=== PATIENT | female | born 1985 | race Caucasian/White ===

== ENCOUNTER → 2017-07-21 11:31 | Outpatient (REF) | payer OTHER, SELFPAY ==
[2017-07-21 14:21] LABS: Amphetamine/Metha Screen,Urine Negative ng/mL (<1000); Barbiturates Screen,Urine Negative ng/mL (<200); Benzodiazepines Screen,Urine Positive ng/mL (200); Cannabinoid Screen,Urine Positive ng/mL (<50); Cocaine Screen,Urine Negative ng/g (<300); Methadone Screen,Urine Negative ng/mL (<300); Opiate Screen,Urine Negative ng/mL (<300); Phencyclidine Screen,Urine Negative ng/mL (<25)
[2017-07-21 18:12] LABS: C-Reactive Protein < 0.2 mg/L (0.0-0.9)
[2017-07-21 18:53] LABS: Erythrocyte Sedimentation Rate 8 mm/hr (0-20)
== END ==
LOC: LAB 11:31
PROVIDERS: Visit Provider Emergency Medicine
DX: Z79.899 Other long term (current) drug therapy (principal); R53.83 Other fatigue
CPT/HCPCS: 80305; 85651; 86140

== ENCOUNTER → 2017-08-09 13:53 | Outpatient (REF) | payer OTHER, SELFPAY ==
[2017-08-09 14:30] LABS: Amphetamine/Metha Screen,Urine Negative ng/mL (<1000); Barbiturates Screen,Urine Positive ng/mL (<200); Benzodiazepines Screen,Urine Positive ng/mL (200); Cannabinoid Screen,Urine Negative ng/mL (<50); Cocaine Screen,Urine Negative ng/g (<300); Methadone Screen,Urine Negative ng/mL (<300); Opiate Screen,Urine Negative ng/mL (<300); Phencyclidine Screen,Urine Negative ng/mL (<25)
== END ==
LOC: LAB 13:53
PROVIDERS: Visit Provider Emergency Medicine
DX: Z79.899 Other long term (current) drug therapy (principal)
CPT/HCPCS: 80305

== ENCOUNTER → 2017-08-17 09:25 | Outpatient (CLI) | payer OTHER, SELFPAY | PROVIDERS: PCP Emergency Medicine; Visit Provider Emergency Medicine | DX: M54.40 Lumbago with sciatica, unspecified side (principal); G89.29 Other chronic pain ==

== ENCOUNTER → 2017-09-05 14:03 | Outpatient (REF) | payer OTHER, SELFPAY ==
[2017-09-05 22:08] LABS: Amphetamine/Metha Screen,Urine Negative ng/mL (<1000); Barbiturates Screen,Urine Positive ng/mL (<200); Benzodiazepines Screen,Urine Positive ng/mL (200); Cannabinoid Screen,Urine Negative ng/mL (<50); Cocaine Screen,Urine Negative ng/g (<300); Methadone Screen,Urine Negative ng/mL (<300); Opiate Screen,Urine Negative ng/mL (<300); Phencyclidine Screen,Urine Negative ng/mL (<25)
== END ==
LOC: LAB 14:03
PROVIDERS: Visit Provider Emergency Medicine
DX: M54.9 Dorsalgia, unspecified (principal); Z79.899 Other long term (current) drug therapy
CPT/HCPCS: 80305

== ENCOUNTER → 2017-09-30 12:42 | Outpatient (CLI) | payer OTHER, SELFPAY ==
--- NOTE | 2017-09-30 12:56 | XR_ITS ---
XR chest 2V INDICATION: Coarseness COMPARISON: PA and lateral chest 09/09/2015 FINDINGS: The cardiovascular structures are unremarkable. No mediastinal shift or hilar mass is evident. The lungs are well expanded and clear bilaterally. The costophrenic sulci are sharp. No significant bony anomalies are apparent. IMPRESSION: Negative chest.
[2017-09-30 13:33] LABS: Eosinophils # 0.1 K/mm3 (0.0-0.4); Eosinophils % 3.2 % (0.1-12.0); Hematocrit 44.3 % (37.0-47.0); Hemoglobin 14.3 g/dL (12.2-16.2); Lymphocytes # 1.3 K/mm3 (0.7-4.5); Lymphocytes % 33.2 K/mm3 (10-50); Mean Corpuscular HGB Conc 32.2 g/dL (31.8-35.4); Mean Corpuscular Hemoglobin 30.7 pg (27.0-31.2); Mean Corpuscular Volume 95.4 fl (81-99); Mean Platelet Volume 8.1 fl (7.4-10.4); Monocytes # 0.3 K/mm3 (0.1-1.0); Monocytes % 6.5 % (1.7-9.3); Neutrophils # 2.1 K/mm3 (1.8-7.8); Platelet Count 201 K/mm3 (142-424); Red Blood Count 4.65 M/mm3 (4.20-5.40); Red Cell Distribution Width 12.4 % (11.5-17.5); White Blood Count 3.8 K/mm3 (4.8-10.8)
[2017-09-30 13:39] LABS: Alanine Aminotransferase 190 U/L (12-78); Albumin Level 4.2 gm/dL (3.4-5.0); Albumin/Globulin Ratio 1.5 (1.1-1.8); Alkaline Phosphatase 68 U/L (46-116); Anion Gap 11.7 mEq/L (5-15); Aspartate Amino Transferase 38 U/L (15-37); Bilirubin,Total 0.5 mg/dL (0.2-1.0); Blood Urea Nitrogen 20 mg/dL (7-18); Calcium 9.1 mg/dL (8.5-10.1); Carbon Dioxide 28 mmol/L (21.0-32.0); Chloride 106 mmol/L (98-107); Estimated Glomerular Filt Rate 83 ml/min (>60); GFR (African American) 101 ML/MIN (>60); Globulin 2.8 gm/dl (1.3-3.2); Glucose 110 mg/dL (74-106); Potassium 3.7 mmoL/L (3.5-5.1); Sodium 142 mmol/L (136-145)
== END ==
PROVIDERS: PCP Emergency Medicine; Visit Provider Otolaryngology
DX: J38.1 Polyp of vocal cord and larynx (principal)
CPT/HCPCS: 36415; 71046; 80053; 85025

== ENCOUNTER → 2017-10-04 08:14 | Outpatient (REF) | payer OTHER, SELFPAY ==
[2017-10-04 13:39] LABS: Amphetamine/Metha Screen,Urine Negative ng/mL (<1000); Barbiturates Screen,Urine Positive ng/mL (<200); Benzodiazepines Screen,Urine Positive ng/mL (200); Cannabinoid Screen,Urine Negative ng/mL (<50); Cocaine Screen,Urine Negative ng/g (<300); Methadone Screen,Urine Negative ng/mL (<300); Opiate Screen,Urine Negative ng/mL (<300); Phencyclidine Screen,Urine Negative ng/mL (<25)
== END ==
LOC: LAB 08:14
PROVIDERS: Visit Provider Emergency Medicine
DX: Z79.899 Other long term (current) drug therapy (principal)
CPT/HCPCS: 80305

== ENCOUNTER → 2017-10-31 10:11 | Outpatient (REF) | payer OTHER, SELFPAY ==
[2017-10-31 14:38] LABS: Amphetamine/Metha Screen,Urine Negative ng/mL (<1000); Barbiturates Screen,Urine Negative ng/mL (<200); Benzodiazepines Screen,Urine Positive ng/mL (200); Cannabinoid Screen,Urine Negative ng/mL (<50); Cocaine Screen,Urine Negative ng/g (<300); Methadone Screen,Urine Negative ng/mL (<300); Opiate Screen,Urine Positive ng/mL (<300); Phencyclidine Screen,Urine Negative ng/mL (<25)
== END ==
LOC: LAB 10:11
PROVIDERS: Visit Provider Emergency Medicine
DX: Z79.899 Other long term (current) drug therapy (principal)
CPT/HCPCS: 80305

== ENCOUNTER → 2017-11-29 11:23 | Outpatient (REF) | payer OTHER, SELFPAY ==
[2017-11-29 14:03] LABS: Amphetamine/Metha Screen,Urine Negative ng/mL (<1000); Barbiturates Screen,Urine Negative ng/mL (<200); Benzodiazepines Screen,Urine Positive ng/mL (200); Cannabinoid Screen,Urine Negative ng/mL (<50); Cocaine Screen,Urine Negative ng/g (<300); Methadone Screen,Urine Negative ng/mL (<300); Opiate Screen,Urine Negative ng/mL (<300); Phencyclidine Screen,Urine Negative ng/mL (<25)
== END ==
LOC: LAB 11:23
PROVIDERS: Visit Provider Emergency Medicine
DX: Z79.899 Other long term (current) drug therapy (principal)
CPT/HCPCS: 80305

== ENCOUNTER → 2017-12-29 09:47 | Outpatient (CLI) | payer OTHER, SELFPAY ==
[2017-12-29 21:13] LABS: Amphetamine/Metha Screen,Urine Negative ng/mL (<1000); Barbiturates Screen,Urine Positive ng/mL (<200); Benzodiazepines Screen,Urine Negative ng/mL (<200); Cannabinoid Screen,Urine Negative ng/mL (<50); Cocaine Screen,Urine Negative ng/mL (<300); Methadone Screen,Urine Negative ng/mL (<300); Opiate Screen,Urine Negative ng/mL (<300); Phencyclidine Screen,Urine Negative ng/mL (<25)
== END ==
PROVIDERS: Visit Provider Emergency Medicine
DX: R30.0 Dysuria (principal); M54.5 Low back pain; Z79.899 Other long term (current) drug therapy
CPT/HCPCS: 80305; 87086

== ENCOUNTER → 2018-01-29 09:16 | Outpatient (REF) | payer OTHER, SELFPAY ==
[2018-01-29 14:13] LABS: Amphetamine/Metha Screen,Urine Negative ng/mL (<1000); Barbiturates Screen,Urine Positive ng/mL (<200); Benzodiazepines Screen,Urine Positive ng/mL (<200); Cannabinoid Screen,Urine Negative ng/mL (<50); Cocaine Screen,Urine Negative ng/mL (<300); Methadone Screen,Urine Negative ng/mL (<300); Opiate Screen,Urine Negative ng/mL (<300); Phencyclidine Screen,Urine Negative ng/mL (<25)
[2018-02-08 21:08] LABS: Alprazolam Negative (Cutoff=100); Benzodiazepines Positive ng/mL (Cutoff=100); Clonazepam Negative (Cutoff=100); Flurazepam Negative (Cutoff=100); Lorazepam Negative (Cutoff=100); Midazolam Negative (Cutoff=100); Temazepam Positive (.); Triazolam Negative (Cutoff=100)
[2018-02-09 09:08] LABS: Opiates Negative ng/mL (Cutoff=100)
== END ==
LOC: LAB 09:16
PROVIDERS: Visit Provider Emergency Medicine
DX: Z79.899 Other long term (current) drug therapy (principal)
CPT/HCPCS: 80305; 80346; 80361; G0480

== ENCOUNTER → 2018-01-30 10:13 | Outpatient (CLI) | payer OTHER, SELFPAY | PROVIDERS: Visit Provider Emergency Medicine | DX: Z79.899 Other long term (current) drug therapy (principal) ==

== ENCOUNTER → 2018-02-28 15:20 | Outpatient (CLI) | payer OTHER, SELFPAY ==
[2018-02-28 18:36] LABS: Amphetamine/Metha Screen,Urine Negative ng/mL (<1000); Barbiturates Screen,Urine Negative ng/mL (<200); Benzodiazepines Screen,Urine Negative ng/mL (<200); Cannabinoid Screen,Urine Negative ng/mL (<50); Cocaine Screen,Urine Negative ng/mL (<300); Methadone Screen,Urine Negative ng/mL (<300); Opiate Screen,Urine Negative ng/mL (<300); Phencyclidine Screen,Urine Negative ng/mL (<25)
== END ==
PROVIDERS: Visit Provider Emergency Medicine
DX: Z79.899 Other long term (current) drug therapy (principal)
CPT/HCPCS: 80305

== ENCOUNTER → 2018-03-28 09:37 | Outpatient (REF) | payer OTHER, SELFPAY ==
[2018-03-28 13:49] LABS: Amphetamine/Metha Screen,Urine Negative ng/mL (<1000); Barbiturates Screen,Urine Negative ng/mL (<200); Benzodiazepines Screen,Urine Positive ng/mL (<200); Cannabinoid Screen,Urine Negative ng/mL (<50); Cocaine Screen,Urine Negative ng/mL (<300); Methadone Screen,Urine Negative ng/mL (<300); Opiate Screen,Urine Negative ng/mL (<300); Phencyclidine Screen,Urine Negative ng/mL (<25)
[2018-04-04 16:24] LABS: Alprazolam Negative (Cutoff=100); Benzodiazepines Positive ng/mL (Cutoff=100); Clonazepam Negative (Cutoff=100); Flurazepam Negative (Cutoff=100); Lorazepam Negative (Cutoff=100); Midazolam Negative (Cutoff=100); Temazepam Positive (.); Triazolam Negative (Cutoff=100)
[2018-04-05 07:09] LABS: Opiates Negative ng/mL (Cutoff=100)
== END ==
LOC: LAB 09:37
PROVIDERS: Visit Provider Emergency Medicine
DX: Z79.899 Other long term (current) drug therapy (principal)
CPT/HCPCS: 80305; 80346; 80361; G0480

== ENCOUNTER → 2018-03-30 08:31 | Outpatient (CLI) | payer OTHER, SELFPAY | PROVIDERS: Visit Provider Emergency Medicine | DX: Z79.899 Other long term (current) drug therapy (principal) ==

== ENCOUNTER → 2018-04-13 16:39 | Outpatient (CLI) | payer OTHER, SELFPAY ==
--- NOTE | 2018-04-13 16:40 | MR_ITS ---
MR lumbar spine wo con, MR 3-d myelogram/MRCP HISTORY: Low back pain X years. RT leg pain, tingling, and burning. PT also states mid back burning on RT side. ITS.REASON: back pain ORDERING PHYSICIAN: Carlos Herr MD PATIENT AGE: 32 years Comparison: None TECHNIQUE: Standard multiplanar multiecho sequences are performed without contrast. 3-D MIP and myelographic images are also rendered and reviewed FINDINGS: There is lumbar rotoscoliosis convex left measuring 20 degrees. L1-L2: Disc desiccation along the right aspect of the disc. L2-L3: Minimal bulging disc. L3-L4: Bulging disc slightly eccentric towards the left with small central annular fissure. There is moderate facet and ligamentum flavum hypertrophy with moderate bilateral lateral recess and foraminal narrowing. L4-5: Mild concentric bulging disc with minimal broad-based central disc protrusion. There is facet and ligamentum flavum hypertrophy at this level with moderate bilateral lateral recess narrowing. There is some mild impingement upon the L5 nerve roots bilaterally from the central protruding/bulging disc and facet and ligamentum flavum hypertrophy. There is borderline canal stenosis at L4-L5. L5-S1: Degenerative disc disease with bulging disc along with mild facet and ligamentous hypertrophy. No extruded herniated disc is evident. IMPRESSION: 1. Lumbar rotoscoliosis convex left with mild multilevel lumbar spondylosis. 2. L3-L4: Bulging disc slightly eccentric towards the left with small central annular fissure. There is moderate facet and ligamentum flavum hypertrophy with moderate bilateral lateral recess and foraminal narrowing. 3. L4-5: Mild concentric bulging disc with minimal broad-based central disc protrusion. There is facet and ligamentum flavum hypertrophy at this level with moderate bilateral lateral recess narrowing. There is some mild impingement upon the L5 nerve roots bilaterally from the central protruding/bulging disc and facet and ligamentum flavum hypertrophy. There is borderline canal stenosis at L4-L5 4. No extruded herniated disc evident
== END ==
PROVIDERS: PCP Emergency Medicine; Visit Provider Emergency Medicine
DX: M54.9 Dorsalgia, unspecified (principal)
CPT/HCPCS: 72148; 76376

== ENCOUNTER → 2018-04-26 16:28 | Outpatient (CLI) | payer OTHER, SELFPAY ==
[2018-04-27 16:04] LABS: Amphetamine/Metha Screen,Urine Negative ng/mL (<1000); Barbiturates Screen,Urine Negative ng/mL (<200); Benzodiazepines Screen,Urine Negative ng/mL (<200); Cannabinoid Screen,Urine Negative ng/mL (<50); Cocaine Screen,Urine Negative ng/mL (<300); Methadone Screen,Urine Negative ng/mL (<300); Opiate Screen,Urine Negative ng/mL (<300); Phencyclidine Screen,Urine Negative ng/mL (<25)
== END ==
PROVIDERS: PCP Emergency Medicine; Visit Provider Emergency Medicine
DX: Z79.899 Other long term (current) drug therapy (principal)
CPT/HCPCS: 80305

== ENCOUNTER → 2018-05-28 18:28 | Outpatient (CLI) | payer OTHER, SELFPAY ==
[2018-05-28 19:13] LABS: Amphetamine/Metha Screen,Urine Negative ng/mL (<1000); Barbiturates Screen,Urine Negative ng/mL (<200); Benzodiazepines Screen,Urine Negative ng/mL (<200); Cannabinoid Screen,Urine Negative ng/mL (<50); Cocaine Screen,Urine Negative ng/mL (<300); Methadone Screen,Urine Negative ng/mL (<300); Opiate Screen,Urine Negative ng/mL (<300); Phencyclidine Screen,Urine Negative ng/mL (<25)
== END ==
PROVIDERS: Visit Provider Emergency Medicine
DX: Z79.899 Other long term (current) drug therapy (principal)
CPT/HCPCS: 80305

== ENCOUNTER → 2018-07-02 18:14 | Outpatient (CLI) | payer OTHER, SELFPAY ==
[2018-07-02 19:57] LABS: Amphetamine/Metha Screen,Urine Negative ng/mL (<1000); Barbiturates Screen,Urine Negative ng/mL (<200); Benzodiazepines Screen,Urine Negative ng/mL (<200); Cannabinoid Screen,Urine Negative ng/mL (<50); Cocaine Screen,Urine Negative ng/mL (<300); Methadone Screen,Urine Negative ng/mL (<300); Opiate Screen,Urine Negative ng/mL (<300); Phencyclidine Screen,Urine Negative ng/mL (<25)
[2018-07-07 16:12] LABS: Alprazolam Negative (Cutoff=100); Benzodiazepines Positive ng/mL (Cutoff=100); Clonazepam Positive (.); Flurazepam Negative (Cutoff=100); Lorazepam Negative (Cutoff=100); Midazolam Negative (Cutoff=100); Temazepam Negative (Cutoff=100); Triazolam Negative (Cutoff=100)
[2018-07-07 22:47] LABS: Clonazepam Confirm 243 ng/mL (Cutoff=100); Opiates Negative ng/mL (Cutoff=100)
[2018-07-08 15:08] LABS: Amphetamines Negative (Cutoff=500)
== END ==
PROVIDERS: Visit Provider Emergency Medicine
DX: Z79.899 Other long term (current) drug therapy (principal)
CPT/HCPCS: 80305; 80324; 80346; 80361; G0480

== ENCOUNTER → 2021-08-16 16:00 | Outpatient (CLI) | payer BC, OTHER, SELFPAY ==
[2021-08-16 14:32] LABS: Alanine Aminotransferase 181 U/L (12-78); Albumin Level 4.4 g/dl (3.5-5.0); Alkaline Phosphatase 95 U/L (38-126); Anion Gap 10.3 mEq/L (5-15); Aspartate Amino Transferase 235 U/L (14-36); Bilirubin,Total 0.7 mg/dl (0.2-1.3); Blood Urea Nitrogen 14 mg/dl (7-17); Calcium 9.2 mg/dl (8.4-10.2); Carbon Dioxide 26 mmol/L (22.0-30.0); Chloride 106 mmol/L (98-107); Chol/HDL Ratio 2.4 (1-3.5); Cholesterol 138 mg/dl (140-200); Estimated Glomerular Filt Rate 95 ml/min (>60); GFR (African American) 115 ML/MIN (>60); Globulin 2.2 g/dL (1.3-3.2); Glucose 85 mg/dl (74-100); HDL Cholesterol 57 mg/dl (40-60); Potassium 4.3 mmoL/L (3.5-5.1); Sodium 138 mmol/L (136-145); Total Protein,Serum 6.6 g/dl (6.3-8.2); Triglycerides 81 mg/dl (30-150); VLDL Cholesterol 16 mg/dL (0-40)
[2021-08-16 14:43] LABS: Basophils % 0.8 % (0.1-2.0); Direct LDL Cholesterol 56.01 mg/dL (100-129); Eosinophils # 0.1 K/mm3 (0.0-0.4); Eosinophils % 2.4 % (0.1-12.0); Hematocrit 40.3 % (37.0-47.0); Hemoglobin 13.2 g/dL (12.2-16.2); Lymphocytes # 1.3 K/mm3 (0.7-4.5); Lymphocytes % 33.9 % (10-50); Mean Corpuscular HGB Conc 32.7 g/dL (31.8-35.4); Mean Corpuscular Hemoglobin 30.2 pg (27.0-31.2); Mean Corpuscular Volume 92.6 fl (81-99); Mean Platelet Volume 8.9 fl (7.4-10.4); Monocytes # 0.3 K/mm3 (0.1-1.0); Monocytes % 7.1 % (1.7-9.3); Neutrophils # 2.1 K/mm3 (1.8-7.8); Neutrophils % 55.7 % (37.0-80.0); Platelet Count 146 K/mm3 (142-424); Red Blood Count 4.35 M/mm3 (4.20-5.40); Red Cell Distribution Width 13.3 % (11.5-17.5); White Blood Count 3.7 K/mm3 (4.8-10.8)
[2021-08-16 14:49] LABS: 25-OH Vitamin D, Total 78.1 ng/mL (30-100)
[2021-08-16 14:50] LABS: T4 (Thyroxine) 11.8 ug/dl (5.53-11.0)
[2021-08-16 15:03] LABS: Thyroid Stimulating Hormone 1.06 uIU/mL (0.465-4.68)
[2021-08-16 17:22] LABS: Amphetamine/Metha Screen,Urine Positive ng/ml (<1000); Barbiturates Screen,Urine Negative ng/ml (<200)
[2021-08-16 17:23] LABS: Benzodiazepines Screen,Urine Negative ng/ml (<200)
[2021-08-16 17:24] LABS: Cannabinoid Screen,Urine Negative ng/ml (<50); Cocaine Screen,Urine Negative ng/ml (<300)
[2021-08-16 17:25] LABS: Methadone Screen,Urine Positive ng/ml (<300)
[2021-08-16 17:26] LABS: Opiate Screen,Urine Negative ng/ml (<300); Phencyclidine Screen,Urine Negative ng/ml (<25)
== END ==
PROVIDERS: Visit Provider Emergency Medicine
DX: Z79.899 Other long term (current) drug therapy (principal); E66.9 Obesity, unspecified; Z68.29 Body mass index [BMI] 29.0-29.9, adult
CPT/HCPCS: 80053; 80061; 80305; 82306; 84436; 84443; 85025

== ENCOUNTER → 2022-01-06 07:07 | Outpatient (CLI) | payer BC, OTHER, SELFPAY ==
[2022-01-05 17:34] LABS: Amphetamine/Metha Screen,Urine Positive ng/ml (<1000); Benzodiazepines Screen,Urine Negative ng/ml (<200)
[2022-01-05 17:35] LABS: Barbiturates Screen,Urine Negative ng/ml (<200)
[2022-01-05 17:36] LABS: Cannabinoid Screen,Urine Negative ng/ml (<50)
[2022-01-05 17:37] LABS: Cocaine Screen,Urine Negative ng/ml (<300); Methadone Screen,Urine Positive ng/ml (<300)
[2022-01-05 17:38] LABS: Opiate Screen,Urine Positive ng/ml (<300); Phencyclidine Screen,Urine Negative ng/ml (<25)
== END ==
PROVIDERS: PCP Emergency Medicine; Visit Provider Emergency Medicine
DX: Z79.899 Other long term (current) drug therapy (principal)
CPT/HCPCS: 80305

== ENCOUNTER → 2022-03-04 08:42 | Outpatient (CLI) | payer BC, OTHER, SELFPAY ==
[2022-03-04 19:33] LABS: Amphetamine/Metha Screen,Urine Negative ng/ml (<1000)
[2022-03-04 19:34] LABS: Barbiturates Screen,Urine Negative ng/ml (<200)
[2022-03-04 19:35] LABS: Benzodiazepines Screen,Urine Negative ng/ml (<200); Cannabinoid Screen,Urine Negative ng/ml (<50)
[2022-03-04 19:36] LABS: Cocaine Screen,Urine Negative ng/ml (<300)
[2022-03-04 19:37] LABS: Methadone Screen,Urine Negative ng/ml (<300)
[2022-03-04 19:38] LABS: Opiate Screen,Urine Positive ng/ml (<300)
[2022-03-04 19:39] LABS: Phencyclidine Screen,Urine Negative ng/ml (<25)
== END ==
PROVIDERS: PCP Emergency Medicine; Visit Provider Emergency Medicine
DX: Z79.899 Other long term (current) drug therapy (principal)
CPT/HCPCS: 80305

== ENCOUNTER → 2022-05-03 16:15 | Outpatient (CLI) | payer OTHER, SELFPAY ==
[2022-05-03 21:24] LABS: Benzodiazepines Screen,Urine Negative ng/ml (<200)
[2022-05-03 21:25] LABS: Amphetamine/Metha Screen,Urine Positive ng/ml (<1000); Barbiturates Screen,Urine Negative ng/ml (<200)
[2022-05-03 21:26] LABS: Cannabinoid Screen,Urine Negative ng/ml (<50)
[2022-05-03 21:27] LABS: Cocaine Screen,Urine Negative ng/ml (<300); Methadone Screen,Urine Negative ng/ml (<300)
[2022-05-03 21:28] LABS: Opiate Screen,Urine Positive ng/ml (<300); Phencyclidine Screen,Urine Negative ng/ml (<25)
== END ==
PROVIDERS: PCP Emergency Medicine; Visit Provider Emergency Medicine
DX: Z79.899 Other long term (current) drug therapy (principal)
CPT/HCPCS: 80305